=== PATIENT | female | born 1975 | race African-American/Black ===

== ENCOUNTER 2016-11-12 03:27 | Inpatient (IN) | payer MEDICAID, OTHER ==
[~2016-11-12] VITALS: Ht 157.5 cm; Wt 91.0 kg
[2016-11-12] MEDS ORDERED: ALBUTEROL SULF 2.5 MG/0.5ML(0.5%) NEB SOLN NEB ONE ×2 (04:00→06:00)
[2016-11-12] MEDS ORDERED: IPRATROPIUM BROM 0.5 MG/2.5ML INH SOL NEB ONE ×2 (04:00→06:00)
[2016-11-12 04:19] LABS: Basophils # (auto) 0.1 uL; Basophils % (auto) 0.4 % (0.0-2.0); DEFINITIVE VIEW TRANSMISSION; Eosinophils % (auto) 7.5 % (0.0-7.0); Hematocrit 42.3 % (36.0-46.0); Lymphocytes # (auto) 1.9 uL; Mean Corpuscular Hemoglobin 28.2 pg (28.0-32.0); Mean Corpuscular Volume 85.5 fL (80.0-100.0); Mean Platelet Volume 8.6 fL (7.4-10.4); Monocytes # (auto) 0.8 uL; Monocytes % (auto) 5.9 % (0.0-12.0); Neutrophils % (auto) 72.2 % (37.0-80.0); Platelet Count (auto) 336 10^3/uL (140-450); Red Cell Distribution Width 14.4 % (11.6-16.0); White Blood Cell 13.8 10^3/uL (4.4-10.8)
[2016-11-12 04:32] LABS: Albumin 3.4 g/dL (3.4-5.0); Anion Gap 11 (5-15); Aspartate Aminotransferase 11 U/L (15-37); BUN/Creatinine Ratio 12.4; Blood Urea Nitrogen 11 mg/dL (7-18); Calcium 8.8 mg/dL (8.5-10.1); Carbon Dioxide 25 mmol/L (21-32); Chloride 105 mmol/L (98-107); GFR African American 89 mL/min; GFR Non-African American 74 mL/min; Glucose 124 mg/dL (74-106); Potassium 3.7 mmol/L (3.5-5.1); Sodium 141 mmol/L (136-145)
[2016-11-12 04:39] LABS: Alkaline Phosphatase 100 U/L (45-117); Bilirubin, Total 0.4 mg/dL (0.2-1.0); Total Protein 7.6 g/dL (6.4-8.2)
[2016-11-12 06:32] LABS: Urine Bilirubin Negative (Negative); Urine Blood Negative /uL (Negative); Urine Color Yellow (Yellow); Urine Glucose Normal (Normal); Urine Ketone Negative (Negative); Urine Mucus FEW (None Seen); Urine Nitrite Negative (Negative); Urine RBC 4 /hpf (0 - 4); Urine Squamous Epithelial Cell FEW /hpf (<5); Urine Urobilinogen Normal (Negative)
[2016-11-12] MEDS ORDERED: SODIUM CHLORIDE 0.9% 500 ML IV ONE (08:00)
[2016-11-12] MEDS ORDERED: ALBUTEROL SULF 2.5 MG/0.5ML(0.5%) NEB SOLN HHN ONE (08:00)
[2016-11-12] MEDS ORDERED: IPRATROPIUM BROM 0.5 MG/2.5ML INH SOL HHN ONE (08:00)
[2016-11-12] MEDS ORDERED: methylPREDNISolone SOD SUCC 125 MG/2 ML VL IV ONE (08:00)
[2016-11-12] MEDS ORDERED: LORazepam 0.5 MG TAB PO PRN (08:45)
[2016-11-12] MEDS ORDERED: PROMETHAZINE HCL 25 MG/ML 1ML IV PRN (08:45)
[2016-11-12] MEDS ORDERED: DEXTROSE (50%) 50ML SYRG IV PRN (08:45)
[2016-11-12] MEDS ORDERED: NITROGLYCERIN 0.4 MG SL TAB SL PRN (08:45)
[2016-11-12] MEDS ORDERED: LACTULOSE 20Gm/30ML SOLN PO PRN (08:45)
[2016-11-12] MEDS ORDERED: MORPHINE SULF INJ 2 MG/ML SYRINGE 1ML IV PRN ×2 (08:45)
[2016-11-12] MEDS ORDERED: ACETAMINOPHEN 500 MG TAB PO PRN (08:45)
[2016-11-12] MEDS ORDERED: ALBUTEROL SULF 2.5 MG/0.5ML(0.5%) NEB SOLN NEB PRN (08:45)
[2016-11-12] MEDS: DOXYCYCLINE HYC 100MG/250ML 250 ML IV SCH ×2 (09:25→21:33)
[2016-11-12] MEDS: ENOXAPARIN SOD 40 MG/0.4 ML SYRINGE SC SCH (09:26)
[2016-11-12] MEDS: SODIUM CHLORIDE 0.9% 1,000 ML IV SCH ×3 (11:23→19:19)
[2016-11-12] MEDS: ACCU-CHEK COMFORT CURVE STRIP VI SCH ×3 (12:00→23:17)
[2016-11-12] MEDS: IPRATROPIUM BROM 0.5 MG/2.5ML INH SOL NEB SCH ×2 (12:00→18:00)
[2016-11-12] MEDS: methylPREDNISolone SOD SUCC 40 MG/ML VL IV SCH ×3 (12:00→23:17)
[2016-11-12] MEDS: ALBUTEROL SULF 2.5 MG/0.5ML(0.5%) NEB SOLN NEB SCH ×2 (12:00→18:00)
[2016-11-12] MEDS ORDERED: BUDEPOW26 XX (12:03)
[2016-11-12] MEDS ORDERED: ALBUAER3 IN (12:03)
[2016-11-12] MEDS ORDERED: BACL20TA PO (12:03)
[2016-11-12] MEDS ORDERED: MONT5CHW17 PO (12:03)
[2016-11-12 13:00] VITALS: BP 113/65
[2016-11-12 17:00] VITALS: BP 131/82
[2016-11-12] MEDS: HYDROcodone-ACET 5/325MG TAB PO PRN (19:19)
[2016-11-12 21:00] VITALS: BP 131/82
[2016-11-12] MEDS: TEMAZEPAM 15 MG CAP PO PRN (21:33)
[2016-11-12 21:41] VITALS: BP 138/75
[2016-11-13] MEDS: IPRATROPIUM BROM 0.5 MG/2.5ML INH SOL NEB SCH ×2 (00:10→19:00)
[2016-11-13] MEDS: ALBUTEROL SULF 2.5 MG/0.5ML(0.5%) NEB SOLN NEB SCH ×4 (00:10→19:00)
[2016-11-13 04:37] VITALS: BP 103/68
[2016-11-13] MEDS: methylPREDNISolone SOD SUCC 40 MG/ML VL IV SCH ×3 (05:57→18:28)
[2016-11-13] MEDS: ACCU-CHEK COMFORT CURVE STRIP VI SCH ×3 (06:03→18:27)
[2016-11-13 06:10] LABS: Basophils # (auto) 0 uL; Eosinophils # (auto) 0 uL; Hematocrit 38.8 % (36.0-46.0); Hemoglobin 13.1 g/dL (12.2-16.2); Lymphocytes # (auto) 0.8 uL; Lymphocytes % (auto) 5.5 % (10.0-50.0); Mean Corpuscular Hemoglobin 28.8 pg (28.0-32.0); Mean Corpuscular Hgb Conc. 33.8 g/dL (32.0-36.0); Mean Corpuscular Volume 85.3 fL (80.0-100.0); Mean Platelet Volume 8.4 fL (7.4-10.4); Monocytes # (auto) 0.3 uL; Monocytes % (auto) 2.1 % (0.0-12.0); Neutrophils % (auto) 92.4 % (37.0-80.0); Platelet Count (auto) 299 10^3/uL (140-450); Red Cell Distribution Width 14.9 % (11.6-16.0); White Blood Cell 15.1 10^3/uL (4.4-10.8)
[2016-11-13 06:43] LABS: Cholesterol 218 mg/dL (< 200); HDL Cholesterol 66 mg/dL (40-59); LDL Cholesterol 179 mg/dL (< 100); Triglycerides 38 mg/dL (< 150)
[2016-11-13 09:00] VITALS: BP 107/54
[2016-11-13] MEDS: DOXYCYCLINE HYC 100MG/250ML 250 ML IV SCH ×2 (09:07→20:34)
[2016-11-13] MEDS: ENOXAPARIN SOD 40 MG/0.4 ML SYRINGE SC SCH (10:28)
[2016-11-13 13:00] VITALS: BP 125/63
[2016-11-13] MEDS: SODIUM CHLORIDE 0.9% 1,000 ML IV SCH (16:38)
[2016-11-13 17:03] VITALS: BP 105/64
[2016-11-13 20:00] VITALS: BP 111/63
[2016-11-13] MEDS: TEMAZEPAM 15 MG CAP PO PRN (20:34)
[2016-11-14] MEDS: IPRATROPIUM BROM 0.5 MG/2.5ML INH SOL NEB SCH ×4 (00:21→19:41)
[2016-11-14] MEDS: ALBUTEROL SULF 2.5 MG/0.5ML(0.5%) NEB SOLN NEB SCH ×4 (00:21→19:41)
[2016-11-14] MEDS: methylPREDNISolone SOD SUCC 40 MG/ML VL IV SCH ×4 (00:22→22:17)
[2016-11-14] MEDS: HYDROcodone-ACET 5/325MG TAB PO PRN (00:46)
[2016-11-14] MEDS: ACCU-CHEK COMFORT CURVE STRIP VI SCH ×5 (05:45→23:36)
[2016-11-14 05:48] VITALS: BP 104/63
[2016-11-14 07:09] LABS: Basophils # (auto) 0 uL; Eosinophils # (auto) 0 uL; Hematocrit 39.2 % (36.0-46.0); Hemoglobin 13.1 g/dL (12.2-16.2); Lymphocytes # (auto) 0.9 uL; Mean Corpuscular Hemoglobin 28.7 pg (28.0-32.0); Mean Corpuscular Hgb Conc. 33.4 g/dL (32.0-36.0); Mean Corpuscular Volume 85.8 fL (80.0-100.0); Mean Platelet Volume 8.7 fL (7.4-10.4); Monocytes # (auto) 0.5 uL; Monocytes % (auto) 2.5 % (0.0-12.0); Neutrophils # (auto) 17.5 uL; Neutrophils % (auto) 92.5 % (37.0-80.0); Platelet Count (auto) 293 10^3/uL (140-450); Red Cell Distribution Width 14.6 % (11.6-16.0); White Blood Cell 18.9 10^3/uL (4.4-10.8)
[2016-11-14 07:37] LABS: Albumin 3.1 g/dL (3.4-5.0); BUN/Creatinine Ratio 18.6; Potassium 4.4 mmol/L (3.5-5.1)
[2016-11-14 07:40] LABS: Bilirubin, Total 0.2 mg/dL (0.2-1.0)
[2016-11-14] MEDS: DOXYCYCLINE HYC 100MG/250ML 250 ML IV SCH ×2 (08:56→20:30)
[2016-11-14] MEDS: SODIUM CHLORIDE 0.9% 1,000 ML IV SCH (08:57)
[2016-11-14 09:00] VITALS: BP 107/59
[2016-11-14] MEDS: ENOXAPARIN SOD 40 MG/0.4 ML SYRINGE SC SCH (11:05)
[2016-11-14 13:00] VITALS: BP 115/57
[2016-11-14 17:00] VITALS: BP 143/84
[2016-11-14 20:00] VITALS: BP 103/75
[2016-11-14 21:55] VITALS: BP 103/75
[2016-11-14] MEDS: TEMAZEPAM 15 MG CAP PO PRN (22:17)
[2016-11-15] MEDS: ALBUTEROL SULF 2.5 MG/0.5ML(0.5%) NEB SOLN NEB SCH ×3 (00:22→11:03)
[2016-11-15] MEDS: IPRATROPIUM BROM 0.5 MG/2.5ML INH SOL NEB SCH ×3 (00:22→11:03)
[2016-11-15] MEDS: SODIUM CHLORIDE 0.9% 1,000 ML IV SCH (03:36)
[2016-11-15 04:39] VITALS: BP 116/64
[2016-11-15 05:48] LABS: Basophils # (auto) 0 uL; Eosinophils # (auto) 0 uL; Hematocrit 39.7 % (36.0-46.0); Lymphocytes # (auto) 0.8 uL; Lymphocytes % (auto) 5.2 % (10.0-50.0); Mean Corpuscular Hemoglobin 28.4 pg (28.0-32.0); Mean Corpuscular Hgb Conc. 32.7 g/dL (32.0-36.0); Mean Corpuscular Volume 86.7 fL (80.0-100.0); Mean Platelet Volume 8.9 fL (7.4-10.4); Monocytes # (auto) 0.9 uL; Neutrophils # (auto) 13.4 uL; Neutrophils % (auto) 88.8 % (37.0-80.0); Platelet Count (auto) 295 10^3/uL (140-450); Red Cell Distribution Width 14.9 % (11.6-16.0)
[2016-11-15 06:02] LABS: Albumin 3.1 g/dL (3.4-5.0); Calcium 8.4 mg/dL (8.5-10.1)
[2016-11-15 06:04] LABS: Total Protein 6.9 g/dL (6.4-8.2)
[2016-11-15 06:06] LABS: Bilirubin, Total 0.2 mg/dL (0.2-1.0)
[2016-11-15] MEDS: ACCU-CHEK COMFORT CURVE STRIP VI SCH ×2 (06:21→12:00)
[2016-11-15 08:00] VITALS: BP 134/82
[2016-11-15 09:04] VITALS: BP 134/82
[2016-11-15] MEDS: DOXYCYCLINE HYC 100MG/250ML 250 ML IV SCH (10:41)
[2016-11-15] MEDS: methylPREDNISolone SOD SUCC 40 MG/ML VL IV SCH (10:48)
[2016-11-15] MEDS: ENOXAPARIN SOD 40 MG/0.4 ML SYRINGE SC SCH (10:51)
== END 2016-11-15 13:14 | disposition home or self-care (01) | DRG 141 ==
LOC: ER 03:27 → TELE-E-ADS 03:28 → TELE-EAST 12:23 → TELE-CENTR 14:11
PROVIDERS: ADMIT Internal Medicine; ATTEND Internal Medicine
DX: J45.901 Unspecified asthma with (acute) exacerbation (principal); E44.1 Mild protein-calorie malnutrition; E78.5 Hyperlipidemia, unspecified; D72.829 Elevated white blood cell count, unspecified; F41.9 Anxiety disorder, unspecified; G89.29 Other chronic pain; M19.90 Unspecified osteoarthritis, unspecified site; M54.9 Dorsalgia, unspecified; M54.30 Sciatica, unspecified side; Z68.36 Body mass index [BMI] 36.0-36.9, adult; Z82.5 Family history of asthma and other chronic lower respiratory diseases; Z80.8 Family history of malignant neoplasm of other organs or systems; Z71.89 Other specified counseling
CPT/HCPCS: 36415; 71020; 80053; 80061; 81001; 82962; 83036; 83735; 84484; 84702; 85025; 87070; 87086; 87205; 93005; 94640; 94644; 96361; 96374; J3490

== ENCOUNTER 2017-03-24 11:53 | Emergency (ER) | payer MEDICAID ==
[~2017-03-24] VITALS: Ht 157.5 cm; Wt 87.1 kg
[~2017-03-24 11:53] MED LIST: ALBUAER3 IN; BACL20TA PO; BUDEPOW26 XX; MONT5CHW17 PO
[2017-03-24] MEDS ORDERED: ALBUTEROL SULF 2.5 MG/0.5ML(0.5%) NEB SOLN NEB ONE (13:00)
[2017-03-24] MEDS ORDERED: cefTRIAXone SOD 1,000 MG VL IM ONE (13:00)
[2017-03-24] MEDS ORDERED: IPRATROPIUM BROM 0.5 MG/2.5ML INH SOL NEB ONE (13:00)
[2017-03-24] MEDS ORDERED: methylPREDNISolone SOD SUCC 125 MG/2 ML VL IM ONE (13:00)
[2017-03-24 13:07] VITALS: BP 124/86
== END 2017-03-24 14:49 | disposition home or self-care (01) ==
LOC: ER 11:53
DX: J45.901 Unspecified asthma with (acute) exacerbation (principal); J18.9 Pneumonia, unspecified organism
CPT/HCPCS: 71020; 94644; 96372; 99285; J0696; J2930

== ENCOUNTER 2018-02-20 21:06 | Emergency (ER) | payer SELFPAY ==
[~2018-02-20] VITALS: Ht 157.5 cm; Wt 89.8 kg
[2018-02-20 21:12] VITALS: BP 151/106
[2018-02-20] MEDS ORDERED: ALBUTEROL SULF 2.5 MG/0.5ML(0.5%) NEB SOLN NEB ONE (21:15)
[2018-02-20] MEDS ORDERED: IPRATROPIUM BROM 0.5 MG/2.5ML INH SOL NEB ONE (21:15)
== END 2018-02-20 23:00 | disposition left against medical advice (07) ==
LOC: ER 21:06
DX: R06.02 Shortness of breath (principal); J45.909 Unspecified asthma, uncomplicated; Z53.21 Procedure and treatment not carried out due to patient leaving prior to being seen by health care provider
CPT/HCPCS: 71045; 94640

== ENCOUNTER 2018-04-30 18:58 | Inpatient (IN) | payer SELFPAY ==
[~2018-04-30] VITALS: Ht 157.5 cm; Wt 83.7 kg
[2018-04-30] MEDS ORDERED: methylPREDNISolone SOD SUCC 125 MG/2 ML VL IV ONE (19:15)
[2018-04-30] MEDS ORDERED: IPRATROPIUM BROM 0.5 MG/2.5ML INH SOL NEB ONE (19:15)
[2018-04-30] MEDS ORDERED: ALBUTEROL SULF 2.5 MG/0.5ML(0.5%) NEB SOLN NEB ONE (19:15)
[2018-04-30] MEDS ORDERED: ALBUTEROL SULF 2.5 MG/0.5ML(0.5%) NEB SOLN ONE (19:16)
[2018-04-30] MEDS ORDERED: IPRATROPIUM BROM 0.5 MG/2.5ML INH SOL ONE (19:16)
[2018-04-30] MEDS ORDERED: ACETAMINOPHEN 325 MG TAB PO ONE (19:30)
[2018-04-30] MEDS ORDERED: PROMETHAZINE W/CODEINE 5 ML ORAL SYRUP PO ONE (19:30)
[2018-04-30 19:33] LABS: Basophils # (auto) 0 uL; Basophils % (auto) 0.5 % (0.0-2.0); Eosinophils # (auto) 0.6 uL; Eosinophils % (auto) 6.8 % (0.0-7.0); Hematocrit 43.1 % (36.0-46.0); Hemoglobin 14.2 g/dL (12.2-16.2); Lymphocytes # (auto) 2.1 uL; Lymphocytes % (auto) 24.2 % (10.0-50.0); Mean Corpuscular Hemoglobin 28.6 pg (28.0-32.0); Mean Corpuscular Hgb Conc. 32.8 g/dL (32.0-36.0); Mean Corpuscular Volume 87.3 fL (80.0-100.0); Monocytes # (auto) 0.7 uL; Monocytes % (auto) 7.7 % (0.0-12.0); Neutrophils # (auto) 5.2 uL; Neutrophils % (auto) 60.8 % (37.0-80.0); Nucleated Red Blood Cells % 0.2 %; Platelet Count (auto) 283 10^3/uL (140-450); Red Blood Cells 4.94 10^6/uL (4.0-5.20); Red Cell Distribution Width 14.2 % (11.8-14.3); White Blood Cell 8.5 10^3/uL (4.4-10.8)
[2018-04-30 19:54] LABS: Albumin 3.6 g/dL (3.4-5.0); Anion Gap 6 (5-15); Blood Urea Nitrogen 9 mg/dL (7-18); Calcium 8.3 mg/dL (8.5-10.1); Carbon Dioxide 25 mmol/L (21-32); Chloride 110 mmol/L (98-107); Glucose 104 mg/dL (74-106); Magnesium 2.2 mg/dL (1.6-2.6); Potassium 3.5 mmol/L (3.5-5.1); Sodium 141 mmol/L (136-145)
[2018-04-30 20:00] LABS: Alanine Aminotransferase 16 U/L (13-56); Alkaline Phosphatase 105 U/L (45-117); Aspartate Aminotransferase 12 U/L (15-37); BUN/Creatinine Ratio 10.3; Bilirubin, Total 0.2 mg/dL (0.2-1.0); GFR African American 91 mL/min; GFR Non-African American 75 mL/min; Total Protein 7.5 g/dL (6.4-8.2)
[2018-04-30] MEDS ORDERED: TEMAZEPAM 15 MG CAP PO PRN (21:00)
[2018-04-30] MEDS ORDERED: ACETAMINOPHEN 325 MG TAB PO PRN (21:00)
[2018-04-30] MEDS ORDERED: MORPHINE SULFATE 4 MG/ML SYR/VIAL IV PRN (21:00)
[2018-04-30] MEDS ORDERED: NITROGLYCERIN 0.4 MG SL TAB SL PRN (21:00)
[2018-04-30] MEDS ORDERED: ONDANSETRON HCL 4 MG/2 ML VIAL IV PRN (21:00)
[2018-04-30 21:40] VITALS: BP 103/74
[2018-04-30] MEDS ORDERED: cefTRIAXone 1GM/50ML D5W 50 ML IV ONE (22:30)
[2018-04-30 22:34] VITALS: BP 98/58
[2018-04-30] MEDS: methylPREDNISolone SOD SUCC 40 MG/ML VL IV SCH (22:34)
[2018-04-30] MEDS: MONTELUKAST SODIUM 10 MG TAB PO SCH (22:34)
[2018-04-30] MEDS: FAMOTIDINE 20 MG TAB PO SCH (22:34)
[2018-05-01 05:08] VITALS: BP 93/61
[2018-05-01 05:18] LABS: Basophils # (auto) 0 uL; Basophils % (auto) 0.1 % (0.0-2.0); Eosinophils # (auto) 0 uL; Eosinophils % (auto) 0.1 % (0.0-7.0); Hematocrit 42.7 % (36.0-46.0); Lymphocytes # (auto) 0.5 uL; Lymphocytes % (auto) 6.8 % (10.0-50.0); Mean Corpuscular Hemoglobin 28.6 pg (28.0-32.0); Mean Corpuscular Hgb Conc. 32.8 g/dL (32.0-36.0); Mean Corpuscular Volume 87.2 fL (80.0-100.0); Monocytes # (auto) 0.1 uL; Monocytes % (auto) 1.1 % (0.0-12.0); Neutrophils # (auto) 6.2 uL; Neutrophils % (auto) 91.9 % (37.0-80.0); Platelet Count (auto) 279 10^3/uL (140-450); Red Cell Distribution Width 14.2 % (11.8-14.3); White Blood Cell 6.7 10^3/uL (4.4-10.8)
[2018-05-01 05:41] LABS: Albumin 3.3 g/dL (3.4-5.0); BUN/Creatinine Ratio 11.2; Calcium 8.7 mg/dL (8.5-10.1); Potassium 4.1 mmol/L (3.5-5.1)
[2018-05-01 05:43] LABS: Bilirubin, Total 0.2 mg/dL (0.2-1.0); Total Protein 7.5 g/dL (6.4-8.2)
[2018-05-01] MEDS ORDERED: THROAT LOZENGES(CEPASTAT) MT PRN (06:15)
[2018-05-01] MEDS: IPRATROPIUM BROM 0.5 MG/2.5ML INH SOL NEB PRN ×2 (06:23→22:47)
[2018-05-01] MEDS: ALBUTEROL SULF 2.5 MG/0.5ML(0.5%) NEB SOLN NEB PRN ×2 (06:24→22:47)
[2018-05-01 09:05] VITALS: BP 106/63
[2018-05-01] MEDS: FAMOTIDINE 20 MG TAB PO SCH ×2 (10:00→20:09)
[2018-05-01] MEDS: methylPREDNISolone SOD SUCC 40 MG/ML VL IV SCH ×2 (10:56→20:10)
[2018-05-01] MEDS: guaiFENesin-DM 100/10mg/5ml SYR PO PRN ×2 (11:09→20:09)
[2018-05-01 13:23] VITALS: BP 105/61
[2018-05-01] MEDS: SODIUM CHLORIDE 0.9% 1,000 ML IV SCH (13:45)
[2018-05-01 17:18] VITALS: BP 108/73
[2018-05-01] MEDS: MONTELUKAST SODIUM 10 MG TAB PO SCH (20:09)
[2018-05-01] MEDS ORDERED: cefTRIAXone 1GM/50ML D5W 50 ML IV SCH (21:00)
[2018-05-01 21:41] VITALS: BP 121/80
[2018-05-02] MEDS: guaiFENesin-DM 100/10mg/5ml SYR PO PRN ×2 (01:22→08:19)
[2018-05-02 05:00] VITALS: BP 100/55
[2018-05-02] MEDS: SODIUM CHLORIDE 0.9% 1,000 ML IV SCH (05:55)
[2018-05-02] MEDS: FAMOTIDINE 20 MG TAB PO SCH (08:20)
[2018-05-02] MEDS: methylPREDNISolone SOD SUCC 40 MG/ML VL IV SCH (08:20)
[2018-05-02] MEDS: ALBUTEROL SULF 2.5 MG/0.5ML(0.5%) NEB SOLN NEB PRN ×2 (08:45→13:52)
[2018-05-02] MEDS: IPRATROPIUM BROM 0.5 MG/2.5ML INH SOL NEB PRN ×2 (08:45→13:52)
[2018-05-02 09:00] VITALS: BP 122/59
[2018-05-02] MEDS ORDERED: LEVO500T21 PO (11:22)
[2018-05-02] MEDS ORDERED: FLUT250M2 INH (11:22)
[2018-05-02 12:22] VITALS: BP 119/68
== END 2018-05-02 18:50 | disposition home or self-care (01) | DRG 189 ==
LOC: ER 18:58 → TELE-WESTW 20:53
PROVIDERS: ADMIT Nurse Practitioner; ATTEND Internal Medicine
DX: J96.00 Acute respiratory failure, unspecified whether with hypoxia or hypercapnia (principal); J45.901 Unspecified asthma with (acute) exacerbation; J20.9 Acute bronchitis, unspecified; E66.9 Obesity, unspecified; Z82.49 Family history of ischemic heart disease and other diseases of the circulatory system; Z82.5 Family history of asthma and other chronic lower respiratory diseases; Z84.89 Family history of other specified conditions
CPT/HCPCS: 36415; 71045; 80053; 83735; 83880; 84484; 85025; 87070; 87205; 87804; 94640; 94644; 96361; 96365; 96375; G0378; J0696

== ENCOUNTER → 2021-05-16 | Emergency (ER) | payer MEDICAID ==
[~2021-05-16] VITALS: Ht 157.5 cm; Wt 88.5 kg
[~2021-05-16] MED LIST changes: -BACL20TA PO; -BUDEPOW26 XX; +FLUT250M2 INH; +LEVO500T31 PO; -MONT5CHW17 PO
[2021-05-16 21:47] VITALS: BP 125/77
== END | disposition home or self-care (01) ==
LOC: ER 20:22
DX: T16.2XXA Foreign body in left ear, initial encounter (principal); J45.909 Unspecified asthma, uncomplicated; Z79.2 Long term (current) use of antibiotics; Z79.899 Other long term (current) drug therapy; Z88.5 Allergy status to narcotic agent; Z91.013 Allergy to seafood; X58.XXXA Exposure to other specified factors, initial encounter; Y93.89 Activity, other specified; Y92.89 Other specified places as the place of occurrence of the external cause; Y99.8 Other external cause status
CPT/HCPCS: 69200

== ENCOUNTER 2022-09-23 23:10 | Emergency (ER) | payer MEDICAID ==
[~2022-09-23] VITALS: Ht 157.5 cm; Wt 89.5 kg
[2022-09-23 23:28] VITALS: BP 139/64
[2022-09-23] MEDS ORDERED: DexAMETHasone SOD PHOS 10MG/1ML VIAL INJ IM ONE (23:45)
[2022-09-23] MEDS ORDERED: IPRATROPIUM BROM 0.5 MG/2.5ML INH SOL NEB ONE (23:45)
[2022-09-23] MEDS ORDERED: ALBUTEROL SULF 2.5 MG/0.5ML(0.5%) NEB SOLN NEB ONE (23:45)
[2022-09-24] MEDS ORDERED: AZIT250T9 PO (05:51)
[2022-09-24] MEDS ORDERED: PRED20TA2 PO (05:51)
[2022-09-24] MEDS ORDERED: ALBUAER3 IN (05:51)
== END 2022-09-24 05:16 | disposition home or self-care (01) ==
LOC: ER 23:10
DX: J45.902 Unspecified asthma with status asthmaticus (principal)
CPT/HCPCS: 71045; 94640; 96372; 99283; J1100; J7644

== ENCOUNTER 2024-04-12 08:34 | Emergency (ER) | payer SELFPAY ==
[~2024-04-12] VITALS: Ht 177.8 cm; Wt 89.5 kg
[~2024-04-12 08:34] MED LIST changes: +AZIT-43 PO; +PRED20TA2 PO
[2024-04-12] MEDS: MAGNESIUM SULFATE 1GM/100ML 100 ML IV ONE (09:07)
[2024-04-12] MEDS: methylPREDNISolone SOD SUCC 125 MG/2 ML VL IV ONE (09:07)
[2024-04-12] MEDS: ALBUTEROL SULF 2.5 MG/0.5ML(0.5%) NEB SOLN NEB ONE (09:11)
[2024-04-12 09:12] VITALS: BP 153/87; PULSE 97; RESP 24; O2SAT 94
[2024-04-12] MEDS: IPRATROPIUM BROM 0.5 MG/2.5ML INH SOL NEB ONE (09:12)
[2024-04-12 09:19] LABS: Basophils # (auto) 0 10 ^3/uL (0-0.2); Basophils % (auto) 0.2 % (0.0-2.0); Eosinophils # (auto) 0.6 10 ^3/uL (0-0.8); Eosinophils % (auto) 5.9 % (0.0-7.0); Hematocrit 43.8 % (36.0-46.0); Hemoglobin 13.8 g/dL (12.2-16.2); Lymphocytes # (auto) 1.4 10 ^3/uL (0.4-5.4); Lymphocytes % (auto) 12.6 % (10.0-50.0); Mean Corpuscular Hemoglobin 27.4 pg (28.0-32.0); Mean Corpuscular Hgb Conc. 31.6 g/dL (32.0-36.0); Mean Corpuscular Volume 86.7 fL (80.0-100.0); Monocytes # (auto) 0.8 10 ^3/uL (0-1.3); Monocytes % (auto) 7.2 % (0.0-12.0); Neutrophils % (auto) 74.1 % (37.0-80.0); Platelet Count (auto) 341 10^3/uL (140-450); Red Blood Cells 5.05 10^6/uL (4.0-5.20); Red Cell Distribution Width 15.1 % (11.8-14.3); White Blood Cell 10.8 10^3/uL (4.4-10.8)
[2024-04-12 09:31] LABS: Chloride 106 mmol/L (98-107); Potassium 3.8 mmol/L (3.5-5.1); Sodium 139 mmol/L (136-145)
[2024-04-12 09:32] LABS: Anion Gap 7 (5-15); Calcium 9.6 mg/dL (8.7-10.4); Carbon Dioxide 26 mmol/L (20-31)
[2024-04-12 09:37] LABS: BUN/Creatinine Ratio 9.2 (10.0-20.0); Blood Urea Nitrogen 7 mg/dL (9-23); Glucose 105 mg/dL (74-106)
== END 2024-04-12 10:50 | disposition left against medical advice (07) ==
LOC: ER 08:34
DX: J45.901 Unspecified asthma with (acute) exacerbation (principal); J96.00 Acute respiratory failure, unspecified whether with hypoxia or hypercapnia; Z98.890 Other specified postprocedural states
CPT/HCPCS: 36415; 71045; 80048; 85025; 94640; 96365; 96375; 99284; J2919; J3475

== ENCOUNTER 2024-06-29 10:53 | Emergency (ER) | payer SELFPAY ==
[~2024-06-29] VITALS: Ht 157.5 cm; Wt 92.6 kg
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
[2024-06-29 12:51] VITALS: BP 144/89; PULSE 74; RESP 16; TEMP 97.8; O2SAT 97
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
[2024-06-29] MEDS ORDERED: IBUP-1456 PO (13:36)
[2024-06-29] MEDS ORDERED: BACL10TA PO (13:36)
== END 2024-06-29 13:42 | disposition home or self-care (01) ==
LOC: ER 10:53
DX: S39.012A Strain of muscle, fascia and tendon of lower back, initial encounter (principal); S83.8X2A Sprain of other specified parts of left knee, initial encounter; S46.812A Strain of other muscles, fascia and tendons at shoulder and upper arm level, left arm, initial encounter; V49.88XA Car occupant (driver) (passenger) injured in other specified transport accidents, initial encounter; Y93.I9 Activity, other involving external motion; Y92.488 Other paved roadways as the place of occurrence of the external cause; Y99.8 Other external cause status; J45.909 Unspecified asthma, uncomplicated; Z79.899 Other long term (current) drug therapy; Z88.5 Allergy status to narcotic agent
CPT/HCPCS: 72100; 73030; 73560

== ENCOUNTER 2024-08-02 20:46 | Emergency (ER) | payer SELFPAY ==
[~2024-08-02] VITALS: Ht 157.5 cm; Wt 90.0 kg
[~2024-08-02 20:46] MED LIST changes: +BACL10TA PO; +IBUP-1456 PO
--- NOTE | 2024-08-02 21:40 | ED.PDOC ---
SOB-HPI HPI Comments This patient is a pleasant but morbidly obese 48y F who presents to the ED for chief complaint of shortness of breath. Pt states she has been having shortness of breath for the past 1 week. Pt states she has history of asthma and states she has been having increasing asthma exacerbation despite using her albuterol inhaler. Pt states she ran out of her asthma inhaler and has been using her nebulizer for the past few days but states it has not been helping so she came to the ED for further evaluation. Pt states in the ED, she otherwise denies chest pain, diaphoresis, palpitations. fever, cough or chills. Pt otherwise denies any other symptoms at this time. Vital signs were stable on arrival. Time Seen by MD: 21:38 Primary Care Provider: DENIA Giron notes: Nurses Notes, Medications, Allergies Information Source: Patient Mode of Arrival: Ambulatory Brought in by: self Severity: Moderate Timing: Days Duration: Since onset Context: At Rest PE Risk Factors: None History of: Asthma Prehospital treatment: Treatment Modifying Factors: Inhaler Associated Signs and Symptoms: Cough If cough with SOB: Non-Productive Past Medical History PAST MEDICAL HISTORY: Asthma Surgical History: ENVIRONMENTAL SERVICES LEAD History: No Pertinent ENVIRONMENTAL SERVICES LEAD History Family History Family History: Reviewed,noncontributory to illness Social History Smoker: Non-Smoker Alcohol: Denies ETOH Use Drugs: Denies Drug Use Lives In: Home Constitutional: denies: chills, diaphoresis, fatigue, fever, malaise, sweats, weakness, others EENTM: denies: blurred vision, double vision, ear bleeding, ear discharge, ear drainage, ear pain, ear ringing, eye pain, eye redness, hearing loss, mouth pain, mouth swelling, nasal discharge, nose bleeding, nose congestion, nose pain, photophobia, tearing, throat pain, throat swelling, voice changes, others Respiratory: reports: shortness of breath; denies: cough, hemoptysis, orthopnea, SOB at rest, SOB with excertion, stridor, wheezing, others Cardiovascular: denies: chest pain, dizzy spells, diaphoresis, Dyspnea on exertion, edema, irregular heart beat, left arm pain, lightheadedness, palpitations, PND, syncope, others Gastrointestinal: denies: abdomen distended, abdominal pain, blood streaked bowels, constipated, diarrhea, dysphagia, difficulty swallowing, hematemesis, melena, nausea, poor appetite, poor fluid intake, rectal bleeding, rectal pain, vomiting, others Genitourinary: denies: abnormal vagina bleeding, burning, dyspareunia, dysuria, flank pain, frequency, hematuria, incontinence, pain, , vagina discharge, urgency, others Neurological: denies: dizziness, fainting, headache, left sided numbness, left sided weakness, numbness, paresthesia, pre-existing deficit, right sided numbness, right sided weakness, seizure, speech problems, tingling, tremors, weakness, others Musculoskeletal: denies: back pain, gout, joint pain, joint swelling, muscle pain, muscle stiffness, neck pain, others Integumetry: denies: bruises, change in color, change in hair/nails, dryness, laceration, lesions, lumps, rash, wounds, others Allergic/Immunocompromised: denies: Difficulty Healing, Frequent Infections, Hives, Itching, others Hematologic/Lymphatic: denies: anemia, blood clots, easy bleeding, easy bruising, swollen glands, others Endocrine: denies: excessive hunger, excessive sweating, excessive thirst, excessive urination, flushing, intolerance to cold, intolerance to heat, unexplained weight gain, unexplained weight loss, others Psychiatric: denies: anxiety, bipolar disorder, depression, hopeless, panic disorder, schizophrenia, sleepless, suicidal, others All Other Systems: Reviewed and Negative Physical Exam General Appearance: Moderate Distress (Patient is a moderate distress due to shortness a breath concerns.), Normal HEENT: Normal ENT Inspection, Pharynx Normal, TMs Normal Neck: Full Range of Motion, Non-Tender, Normal, Normal Inspection Respiratory: Other (Patchy wheezing appreciated in bilateral lung boswell throug hout. No accessory muscle use. No signs of respiratory distress.) Cardiovascular: No Edema, No JVD, No Murmur, No Gallop, Normal Peripheral Pulses, Regular Rate/Rhythm Breast Exam: Deferred Gastrointestinal: No Organomegaly, Non Tender, No Pulsatile Mass, Normal Bowel Sounds, Soft Genitalia: Deferred Pelvic: Deferred Rectal: Deferred Extremities: No calf tenderness, Normal capillary refill, Normal inspection, Normal range of motion, Non-tender, No pedal edema Neurologic: Alert, No Motor Deficits, Normal Affect, Normal Mood, No Sensory Deficits Cerebellar Function: Normal Reflexes: Normal Skin: Dry, Normal Color, Warm Lymphatic: No Adenopathy Was a procedure done? Was a procedure done?: No Differential Dx Differential Diagnosis: Asthma, Bronchitis, Pneumonia, Respiratory Distress, URI X-Ray, Labs, Meds, VS Vital Signs Date Time Temp Pulse Resp B/P (MAP) Pulse Ox O2 Delivery O2 Flow Rate FiO2 08/02/24 21:47 18 99 Room Air* 0 21 08/02/24 21:10 98.5 97 20 112/53 (72) 97 08/02/24 21:10 20 97 Room Air* 0 21 Current Medications Medications (Trade) Dose Ordered Sig/Livia Route Start Time Stop Time Status Last Admin Albuterol (Ventolin Medneb) 5 mg ONCE ONCE NEB 08/02/24 21:30 08/02/24 21:31 DC 08/02/24 21:46 Ipratropium [place] (Atrovent Medneb) 0.5 mg ONCE ONCE NEB 08/02/24 21:30 08/02/24 21:31 DC 08/02/24 21:46 CHEST RADIOGRAPH IMPRESSION: Clear lungs. X-Ray, Labs, Meds, VS Comment All studies performed the ED were evaluated by me personally. Imaging studies were unremarkable for any acute pneumonia or intrapulmonary concerns. Patient appears to be having an asthma exacerbation which is probably due to a viral upper respiratory illness. Advised patient utilize medication as needed as well as good hydration and healthy nutrition throughout illness event. Time of 1ST Reevaluation: 22:35 Reevaluation 1ST: Improved Consultation: PCP Patient Education/Counseling: Diagnosis, Treatment Family Education/Counseling: Diagnosis, Treatment, No Family Present Departure 1 Departure Time of Disposition: 22:35 Impression: Primary Impression: Acute asthma exacerbation Additional Impression: Viral upper respiratory illness Disposition: HOME / SELF CARE / HOMELESS Condition: Stable Additional Instructions: Advise utilizing medication as directed for the next seven days. Additional medication as needed. Patient should follow up with the primary care provider for discussions related to what appears to be not well controlled asthma. e-Prescriptions Budesonide-Formoterol Fumarate (Budesonide/Formoterol Fum 160-4.5 Mcg/Act) 1 Aer Aer 1 AER IN BID for 7 Days, #1 AER Prov: MARCO BROWN PAC 08/02/24 Albuterol Sulfate (Albuterol Sulfate Hfa) 108 Mcg/Act Aer 108 MCG IN Q4HP PRN, #1 AER 1 Refill Prov: MARCO BROWN PAC 08/02/24 Discharged With: Self, Friend Critical Care Note Critical Care Time?: No Stability Stability form required: No Heart Score Heart Score: Heart Score Response (Comments) Value History N/A 0 EKG N/A 0 Age N/A 0 Risk Factors N/A 0 Troponin N/A 0 Total 0 I personally scribed for MARCO BROWN PAC ([email or web address]) on 08/02/24 at 21:40. Electronically submitted by Nesha Briggs ([email or web address]). I personally scribed for MARCO BROWN PAC ([email or web address]) on 08/02/24 at 21:57. El ectronically submitted by Nesha Briggs ([email or web address]). MARCO BROWN PAC Aug 02, 2024 21:40
[2024-08-02] MEDS: ALBUTEROL SULF 2.5 MG/0.5ML(0.5%) NEB SOLN NEB ONE (21:46)
[2024-08-02] MEDS: IPRATROPIUM BROM 0.5 MG/2.5ML INH SOL NEB ONE (21:46)
--- NOTE | 2024-08-02 21:52 | DVH ---
CHEST RADIOGRAPH Indication: Shortness of breath Technique: Single frontal view of the chest was obtained Comparison: XY CHEST PORTABLE on DOS: 04/12/24, XY CHEST PORTABLE on DOS: 09/23/22 FINDINGS: Lines and Tubes: None Lungs: Clear Pleura: No effusion. No pneumothorax. Cardiomediastinal contours: Unremarkable Bones: Unremarkable IMPRESSION: Clear lungs.
[2024-08-02] MEDS ORDERED: ALBU108A5 IN (22:37)
[2024-08-02] MEDS ORDERED: BUDE1AER4 IN (22:37)
[2024-08-03] MEDS: DexAMETHasone SOD PHOS 10MG/1ML VIAL INJ IM ONE (01:17)
[2024-08-03 01:28] VITALS: BP 117/82; PULSE 86; RESP 24; O2SAT 98
[2024-08-03] MEDS: IPRATROPIUM BROM 0.5 MG/2.5ML INH SOL NEB ONE (01:40)
[2024-08-03] MEDS: ALBUTEROL SULF 2.5 MG/0.5ML(0.5%) NEB SOLN NEB ONE (01:41)
== END 2024-08-03 02:08 | disposition home or self-care (01) ==
LOC: ER 20:46
DX: J45.901 Unspecified asthma with (acute) exacerbation (principal); J06.9 Acute upper respiratory infection, unspecified; Z98.890 Other specified postprocedural states
CPT/HCPCS: 71045; 94640; 96372; 99284; J1100

== ENCOUNTER 2025-03-07 16:11 | Emergency (ER) | payer MEDICAID, OTHER ==
[~2025-03-07] VITALS: Ht 162.6 cm; Wt 87.3 kg
[~2025-03-07 16:11] MED LIST changes: +ALBU108A5 IN; +BUDE1AER4 IN
[2025-03-07 16:40] LABS: Hematocrit 44.4 % (36.0-46.0); Hemoglobin 14.6 g/dL (12.2-16.2); Mean Corpuscular Hemoglobin 27.8 pg (28.0-32.0); Mean Corpuscular Volume 84.1 fL (80.0-100.0); Nucleated Red Blood Cells % 0.0 %
--- NOTE | 2025-03-07 16:41 | ED.PDOC ---
History of Present Illness HPI Comments 49 y/o F, with no prior medical history presents to the ED for CC of s/p syncopal event. EMS reports, patient is coming from plasma donation center where facility called d/t patient having a syncopal episode following plasma donation. Per EMS en route to the ED, patient was hypertensive and slightly tachycardic. However, upon arrival all VSS. Patient denies head injury, nausea, vomiting, headache, or blurred vision. No other symptoms or modifying factors are present at this time. 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, Medications, Allergies Allergies: Coded Allergies: Codeine (Verified Allergy, Unknown, 03/24/17) Shellfish Allergy (Verified Allergy, Unknown, 11/12/16) Home Meds Active Scripts Budesonide-Formoterol Fumarate (Budesonide/Formoterol Fum 160-4.5 Mcg/Act) 1 Aer Aer, 1 AER IN BID for 7 Days, #1 AER Prov:MARCO BROWN PAC 08/02/24 Albuterol Sulfate (Albuterol Sulfate Hfa) 108 Mcg/Act Aer, 108 MCG IN Q4HP PRN, #1 AER 1 Refill Prov:MARCO BROWN PAC 08/02/24 Baclofen (Baclofen) 10 Mg Tab, 10 MG PO BID, #20 TAB Prov:CARMINE DE LA CRUZ 06/29/24 Ibuprofen (Ibuprofen) 800 Mg Tab, 1 TAB PO TID, #30 TAB Prov:CARMINE DE LA CRUZ 06/29/24 Azithromycin (Azithromycin) 250 Mg Tab, 250 MG PO DAILY, #6 TAB Prov:LESLY GUZMÁN MD 09/24/22 Albuterol Sulfate (VENTOLIN MDI) 90 Mcg Ih, 90 MCG IN Q6HP PRN for 7 Days, #1 MCG Prov:LESLY GUZMÁN MD 09/24/22 Prednisone (Prednisone) 20 Mg Tab, 20 MG PO TID for 4 Days, #12 MG Prov:LESLY GUZMÁN MD 09/24/22 Levofloxacin (Levaquin) 500 Mg Tab, 500 MG PO DAILY, #7 TAB Prov:BLAINE REGAN MD 05/02/18 Fluticasone-Salmeterol (Advair Diskus 250/50) 1 Puff Ih, 1 PUFF INH BID for 30 Days, INHALER Prov:BLAINE REGAN MD 05/02/18 Reported Medications Albuterol Sulfate (VENTOLIN MDI) 90 Mcg Ih, 90 MCG IN Q6HP for 30 Days, MCG 11/12/16 Information Source: Patient, Emergency Med Personnel Mode of Arrival: EMS Severity: Moderate Timing: Minutes Duration: Minutes 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 Past Medical History PAST MEDICAL HISTORY: Asthma Surgical History: ACTUARY History: No Pertinent ACTUARY History Family History Family History: Reviewed,noncontributory to illness Social History Smoker: Non-Smoker Alcohol: Denies ETOH Use Drugs: Denies Drug Use Lives In: Home Constitutional: denies: chills, diaphoresis, fatigue, fever, malaise, sweats, weakness, others EENTM: denies: blurred vision, double vision, ear bleeding, ear discharge, ear drainage, ear pain, ear ringing, eye pain, eye redness, hearing loss, mouth pain, mouth swelling, nasal discharge, nose bleeding, nose congestion, nose pain, photophobia, tearing, throat pain, throat swelling, voice changes, others Respiratory: denies: cough, hemoptysis, orthopnea, SOB at rest, shortness of breath, SOB with excertion, stridor, wheezing, others Cardiovascular: denies: chest pain, dizzy spells, diaphoresis, Dyspnea on exertion, edema, irregular heart beat, left arm pain, lightheadedness, palpitations, PND, syncope, others Gastrointestinal: denies: abdomen distended, abdominal pain, blood streaked bowels, constipated, diarrhea, dysphagia, difficulty swallowing, hematemesis, melena, nausea, poor appetite, poor fluid intake, rectal bleeding, rectal pain, vomiting, others Genitourinary: denies: abnormal vagina bleeding, burning, dyspareunia, dysuria, flank pain, frequency, hematuria, incontinence, pain, , vagina discharge, urgency, others Neurological: reports: fainting; denies: dizziness, headache, left sided numbness, left sided weakness, numbness, paresthesia, pre-existing deficit, right sided numbness, right sided weakness, seizure, speech problems, tingling, tremors, weakness, others Musculoskeletal: denies: back pain, gout, joint pain, joint swelling, muscle pain, muscle stiffness, neck pain, others Integumetry: denies: bruises, change in color, change in hair/nails, dryness, laceration, lesions, lumps, rash, wounds, others Allergic/Immunocompromised: denies: Difficulty Healing, Frequent Infections, Hives, Itching, others Hematologic/Lymphatic: denies: anemia, blood clots, easy bleeding, easy bruising, swollen glands, others Endocrine: denies: excessive hunger, excessive sweating, excessive thirst, excessive urination, flushing, intolerance to cold, intolerance to heat, unexplained weight gain, unexplained weight loss, others Psychiatric: denies: anxiety, bipolar disorder, depression, hopeless, panic disorder, schizophrenia, sleepless, suicidal, others All Other Systems: Reviewed and Negative Physical Exam General Appearance: No Apparent Distress (Patient was in no distress at time of evaluation.), Normal HEENT: Normal ENT Inspection, Pharynx Normal, TMs Normal Neck: Full Range of Motion, Non-Tender, Normal, Normal Inspection Respiratory: Chest Non-Tender, Lungs Clear, No Accessory Muscle Use, No Respiratory Distress, Normal Breath Sounds Cardiovascular: No Edema, No JVD, No Murmur, No Gallop, Normal Peripheral Pulses, Regular Rate/Rhythm Breast Exam: Deferred Gastrointestinal: No Organomegaly, Non Tender, No Pulsatile Mass, Normal Bowel Sounds, Soft Genitalia: Deferred Pelvic: Deferred Rectal: Deferred Extremities: No calf tenderness, Normal capillary refill, Normal inspection, Normal range of motion, Non-tender, No pedal edema Neurologic: Alert, No Motor Deficits, Normal Affect, Normal Mood, No Sensory Deficits Cerebellar Function: NOT DONE Reflexes: NOT DONE Skin: Dry, Normal Color, Warm Lymphatic: No Adenopathy Was a procedure done? Was a procedure done?: No Differential Dx Considerations may include: anemia, vasovagal, sepsis, electrolyte abnormality, UTI X-Ray, Labs, Meds, VS Vital Signs Date Time Temp Pulse Resp B/P (MAP) Pulse Ox O2 Delivery O2 Flow Rate FiO2 03/07/25 18:11 98.7 96 16 105/69 (81) 100 98.7 03/07/25 16:22 86 03/07/25 16:19 97.9 90 16 110/66 97 97.9 Lab Test 03/07/25 17:55 03/07/25 16:29 03/07/25 16:19 Range/Units Troponin I High Sensitivity < 3 L < 3 L </=34 ng/L White Blood Count 10.8 4.4-10.8 10^3/uL Red Blood Count 5.27 H 4.0-5.20 10^6/uL Hemoglobin 14.6 12.2-16.2 g/dL Hematocrit 44.4 36.0-46.0 % Mean Corpuscular Volume 84.1 80.0-100.0 fL Mean Corpuscular Hemoglobin 27.8 L 28.0-32.0 pg Mean Corpuscular Hemoglobin Concent 33.0 32.0-36.0 g/dL Red Cell Distribution Width 15.3 H 11.8-14.3 % Platelet Count 315 140-450 10^3/uL Mean Platelet Volume 8.0 6.9-10.8 fL Neutrophils (%) (Auto) 73.3 37.0-80.0 % Lymphocytes (%) (Auto) 16.8 10.0-50.0 % Monocytes (%) (Auto) 8.1 0.0-12.0 % Eosinophils (%) (Auto) 1.6 0.0-7.0 % Basophils (%) (Auto) 0.2 0.0-2.0 % Neutrophils # (Auto) 7.9 1.6-8.6 10 ^3/uL Lymphocytes # (Auto) 1.8 0.4-5.4 10 ^3/uL Monocytes # (Auto) 0.9 0-1.3 10 ^3/uL Eosinophils # (Auto) 0.2 0-0.8 10 ^3/uL Basophils # (Auto) 0 0-0.2 10 ^3/uL Nucleated Red Blood Cells 0.0 % Sodium Level 143 136-145 mmol/L Potassium Level 4.2 3.5-5.1 mmol/L Chloride Level 107 98-107 mmol/L Carbon Dioxide Level 29 20-31 mmol/L Anion Gap 7 5-15 Blood Urea Nitrogen 9 9-23 mg/dL Creatinine 0.95 0.550-1.02 mg/dL Glomerular Filtration Rate Calc 73 >90 mL/min BUN/Creatinine Ratio 9.5 L 10.0-20.0 Serum Glucose 114 H 74-106 mg/dL Calcium Level 8.8 8.7-10.4 mg/dL B-Type Natriuretic Peptide 3.95 0-100 pg/mL Lipase 28 12-53 U/L Urine Color Yellow Yellow Urine Clarity Turbid H Clear Urine pH 6.0 5.0-9.0 Urine Specific [place] 1.022 1.001-1.035 Urine Protein Trace H Negative Urine Ketones Negative Negative Urine Blood Negative Negative /uL Urine Nitrite Negative Negative Urine Bilirubin Negative Negative Urine Urobilinogen Normal Negative mg/dL Urine Leukocyte Esterase 3+ Negative /uL Urine RBC 3 0 - 4 /hpf Urine Microscopic WBC 122 H 0-5 /HPF Urine Squamous Epithelial Cells Few <5 /hpf Urine Bacteria Few H None Seen /hpf Urine Hyaline Casts Mod 0 - 2 /lpf Urine Mucus Few None Seen Urine Glucose Normal Normal mg/dL X-Ray, Labs, Meds, VS Comment All studies performed the ED were evaluated by me personally. Serum studies were unremarkable for any systemic concerns, urine confirmed a significant urinary tract infection. I believe that it was a combination of affects which include the urinary tract infection as well as a vasovagal episode status post plasma donation. Advised patient utilize antibiotics as directed as well as good hydration for the next few days. Time of 1ST Reevaluation: 19:23 Reevaluation 1ST: Unchanged Consultation: PCP Patient Education/Counseling: Diagnosis, Treatment Family Education/Counseling: Diagnosis, Treatment, No Family Present SEPSIS Sepsis Screen Recent Procedure: No On Antibiotic Therapy: No Respiratory Rate >20: No Heart Rate >90: No Temp<36 C (96.8 F) or >38.3 C: No SBP <90 or MAP <65 mmHG: No New Acute Mental Status Change: No Is the patient on CPAP, BIPAP,: No Physician Orders Electrocardigram (03/07/25 16:19) Sulfamethoxazole W/Trimeth Tab (Bactrim (03/07/25 19:30) Vital Signs Date Time Temp Pulse Resp B/P (MAP) Pulse Ox O2 Delivery O2 Flow Rate FiO2 03/07/25 18:11 98.7 96 16 105/69 (81) 100 98.7 03/07/25 16:22 86 03/07/25 16:19 97.9 90 16 110/66 97 97.9 Laboratory Tests Test 03/07/25 16:29 White Blood Count 10.8 10^3/uL (4.4-10.8) Departure 1 Departure Time of Disposition: 19:24 Impression: Primary Impression: Vasovagal episode Additional Impression: UTI (urinary tract infection) Disposition: HOME / SELF CARE / HOMELESS Condition: Stable Additional Instructions: Advised patient utilize antibiotics as directed until completion as well as good hydration and healthy nutrition over the next few days. Patient should always be cautious moving forward after plasma or blood donations. Discussed concerns with the patient. e-Prescriptions Sulfamethoxazole W/Trimethopri (Bactrim Ds Tablet) 1 Tab Tb 1 TAB PO BID for 5 Days, #10 TAB Prov: MARCO BROWN PAC 03/07/25 Discharged With: Self, Friend Critical Care Note Critical Care Time?: No Stability Stability form required: No Heart Score Heart Score: Heart Score Response (Comments) Value History N/A 0 EKG N/A 0 Age N/A 0 Risk Factors N/A 0 Troponin N/A 0 Total 0 I personally scribed for MARCO BROWN PAC ([email or web address]) on 03/07/25 at 16:41. Electronically submitted by Nava Yeager ([email or web address]). MARCO BROWN PAC Mar 07, 2025 16:41
[2025-03-07 16:50] LABS: Potassium 4.2 mmol/L (3.5-5.1); Sodium 143 mmol/L (136-145)
[2025-03-07 16:51] LABS: Anion Gap 7 (5-15); Calcium 8.8 mg/dL (8.7-10.4); Carbon Dioxide 29 mmol/L (20-31)
[2025-03-07 16:56] LABS: BUN/Creatinine Ratio 9.5 (10.0-20.0); Lipase 28 U/L (12-53)
[2025-03-07 16:59] LABS: Blood Urea Nitrogen 9 mg/dL (9-23); Chloride 107 mmol/L (98-107); Glucose 114 mg/dL (74-106)
[2025-03-07 18:06] LABS: Urine Protein, UAD TRACE (Negative)
[2025-03-07] MEDS ORDERED: BACDST PO (19:25)
[2025-03-07 19:30] VITALS: BP 133/78; PULSE 89; RESP 18; TEMP 97.5; O2SAT 98
[2025-03-07] MEDS: SULFAMETHOX W/TRIMETH(800/160MG) DS TAB PO ONE (19:37)
--- NOTE | 2025-03-07 20:14 | ECG ---
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
== END 2025-03-07 19:43 | disposition home or self-care (01) ==
LOC: EDUNIT# 16:11 → EDBD 16:11 → ER 16:11
DX: N39.0 Urinary tract infection, site not specified (principal); R55 Syncope and collapse; J45.909 Unspecified asthma, uncomplicated; I10 Essential (primary) hypertension; Z79.899 Other long term (current) drug therapy; Z88.5 Allergy status to narcotic agent; Z79.52 Long term (current) use of systemic steroids; Z79.51 Long term (current) use of inhaled steroids; Z79.1 Long term (current) use of non-steroidal anti-inflammatories (NSAID)
CPT/HCPCS: 36415; 80048; 81001; 83690; 83880; 84484; 85025; 93005